=== PATIENT | male | born 1960 | race Caucasian/White ===

== ENCOUNTER 2021-08-18 06:31 | Emergency (ER) | payer OTHER ==
[2021-08-18] MEDS ORDERED: PANTOPRAZOLE 40 MG/10 ML VIAL IVP STA (06:54)
[2021-08-18 07:28] LABS: Basophils # (A) 0.1 k/uL (0-0.2); Basophils % (A) 0 %; Eosinophils # (A) 0.1 k/uL (0-0.7); Eosinophils % (A) 0 %; HCT 39.9 % (39.0-53.0); HGB 13.2 gm/dL (13.0-17.5); Lymphocytes # (A) 2.5 k/uL (1.0-4.8); Lymphocytes % (A) 16 %; MCHC 33.1 g/dL (31.0-37.0); MCV 93.5 fL (80.0-100.0); Mean Platelet Volume 7.9; Monocytes # (A) 0.5 k/uL (0-1.0); Monocytes % (A) 3 %; Neutrophils # (A) 12.4 k/uL (1.3-7.7); Neutrophils % (A) 79 %; Platelet Count 275 k/uL (150-450); RBC 4.27 m/uL (4.30-5.90); RDW 13.7 % (11.5-15.5); WBC 15.6 k/uL (3.8-10.6)
[2021-08-18 07:47] LABS: ALT 15 U/L (4-49); AST 21 U/L (17-59); African American GFR (CKD) >90 (>60 ml/min/1.73 sqM); Albumin 3.9 g/dL (3.5-5.0); Alkaline Phosphatase 73 U/L (38-126); Anion Gap 8 mmol/L; Blood Urea Nitrogen 37 mg/dL (9-20); Calcium 8.8 mg/dL (8.4-10.2); Carbon Dioxide 23 mmol/L (22-30); Chloride 107 mmol/L (98-107); Glucose 197 mg/dL (74-99); Non-African American GFR(CKD) >90 (>60 ml/min/1.73 sqM); Sodium 138 mmol/L (137-145); Total Bilirubin 0.9 mg/dL (0.2-1.3); Total Protein 6.8 g/dL (6.3-8.2)
[2021-08-18 07:54] LABS: Partial Thromboplastin Time 31.4 sec (22.0-30.0); Prothrombin Time 10.6 sec (9.0-12.0)
[2021-08-18] MEDS ORDERED: ONDANSETRON 4 MG/2 ML VIAL IVP STA (08:05)
--- NOTE | 2021-08-18 08:45 | ED ---
GI Bleed HPI - General Chief complaint: GI Bleed Stated complaint: GI Bleed Time Seen by Provider: 08/18/21 06:54 Source: patient, family, EMS, RN notes reviewed, old records reviewed Mode of arrival: EMS Limitations: no limitations - History of Present Illness Initial comments: Patient is a 60-year-old male with history of hemophilia a, presenting to the emergency department via EMS with complaints of a GI bleed. Patient states yesterday and over the weekend he was doing a lot of work and has been feeling fatigued. He woke up around 4 AM, felt nauseous and had an episode of bloody emesis, described as bright red, small clots present. He states he felt a little improved, went to lay back down and then woke up again and had an episode of bloody diarrhea, dark in nature, clots present, so he called EMS. Currently he feels a little fatigued but no nausea or vomiting, denies any abdominal pain. He states he gives himself factor VIII injections every 48 hours, last dose was last night. Never had a GI bleed in the past. Denies any lightheadedness or dizziness, no headaches or blurry vision. Denies chest pain or shortness of breath. 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 Before early this morning, he has felt his normal self, no changes in medications. Patient has no further complaints at this time. - Related Data Home Medications Medication Instructions Recorded Confirmed HYDROcodone/APAP 7.5-325MG [[place] 0.5 tab PO DAILY PRN 08/18/21 08/18/21 7.5-325] Xyntha Solofuse 1,800 - 2,000 unit IV Q48H 08/18/21 08/18/21 Allergies Allergy/AdvReac Type Severity Reaction Status Date / Time No Known Allergies Allergy Verified 08/18/21 07:53 Review of Systems ROS Statement: Those systems with pertinent positive or pertinent negative responses have been documented in the HPI. ROS Other: All systems not noted in ROS Statement are negative. Past Medical History Additional Past Medical History / Comment(s): Hemophila A, Arthritis Additional Past Surgical History / Comment(s): TBI Smoking Status: Never smoker Past Alcohol Use History: Occasional Past Drug Use History: Marijuana General Exam - General Exam Comments Initial Comments: GENERAL: Patient is well-developed and well-nourished. Patient is nontoxic and in no acute distress, looks fatigued. HEAD: Atraumatic, normocephalic. EYES: Pupils equal round and reactive to light, extraocular movements intact, sclera anicteric, conjunctiva are normal. Eyelids were unremarkable. ENT: Nares patent, oropharynx clear without exudates. Moist mucous membranes. NECK: Normal range of motion, supple without lymphadenopathy or JVD. LUNGS: Unlabored respirations. Breath sounds clear to auscultation bilaterally and equal. No wheezes rales or rhonchi. HEART: Regular rate and rhythm without murmurs, rubs or gallops. ABDOMEN: Soft, nontender, normoactive bowel sounds. No guarding, no rebound. No masses appreciated. Rectal: No external hemorrhoids, stool is dark, heme occult positive. MUSCULOSKELETAL: Normal extremities with adequate strength and normal range of motion, no pitting or edema. No clubbing or cyanosis. NEUROLOGICAL: Patient is alert and oriented x 3. Symmetrical smile. Normal speech, normal gait. PSYCH: Normal mood, normal affect. SKIN: Warm, Dry, normal turgor, no rashes or lesions noted. Limitations: no limitations Course Vital Signs 08/18/21 08/18/21 08/18/21 06:33 07:26 08:13 Temperature 98.1 F 97.8 F Pulse Rate 86 91 79 Respiratory 18 18 22 Rate Blood Pressure 115/86 151/95 121/70 O2 Sat by Pulse 97 97 99 Oximetry 08/18/21 08/18/21 08/18/21 10:00 11:00 12:29 Temperature 98.5 F Pulse Rate 88 87 90 Respiratory 18 18 18 Rate Blood Pressure 138/89 136/90 142/93 O2 Sat by Pulse 97 96 98 Oximetry - Reevaluation(s) Reevaluation #1: 08/18/21 10:38 Patient reevaluated, vital signs remained stable. His nausea has improved. No more active vomiting. Patient did receive a dose of factor VIII. Awaiting bed at [facility] currently. Reevaluation #2: 08/18/21 14:33 Patient was reevaluated, vital signs remained stable, no further episodes of vomiting or nausea. Patient resting comfortably. Still awaiting bed assignment at [facility]. Medical Decision Making - Medical Decision Making Patient is a 60-year-old male, history of hemophilia A, presenting with episode of bloody emesis as well as an episode of dark black stool early this morning around 5 AM. Last dose of factor VIII was last night. 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 Hemoglobin is stable currently at 13.2. 7:33AM I spoke to [facility] who does accept transfer, they would like to direct admit him per Dr. Min, patient will wait here for a room assignment. 8:00 AM I spoke with pharmacy and ordered a dose of factor VIII. Patient had another episode of bloody emesis here in the ER, gave him a dose of Zofran. Vital signs remained stable. 2:30 PM still awaiting bed assignment at [facility]. Patient's care will be transferred to team. - Lab Data Result diagrams: 08/18/21 07:06 08/18/21 07:06 Lab Results 08/18/21 08/18/21 08/18/21 Range/Units 07:00 07:05 07:06 WBC 15.6 H (3.8-10.6) k/uL RBC 4.27 L (4.30-5.90) m/uL Hgb 13.2 (13.0-17.5) gm/dL Hct 39.9 (39.0-53.0) % MCV 93.5 (80.0-100.0) fL MCH 31.0 (25.0-35.0) pg MCHC 33.1 (31.0-37.0) g/dL RDW 13.7 (11.5-15.5) % Plt Count 275 (150-450) k/uL MPV 7.9 Neutrophils % 79 % Lymphocytes % 16 % Monocytes % 3 % Eosinophils % 0 % Basophils % 0 % Neutrophils # 12.4 H (1.3-7.7) k/uL Lymphocytes # 2.5 (1.0-4.8) k/uL Monocytes # 0.5 (0-1.0) k/uL Eosinophils # 0.1 (0-0.7) k/uL Basophils # 0.1 (0-0.2) k/uL PT (9.0-12.0) sec INR (<1.2) APTT (22.0-30.0) sec Sodium (137-145) mmol/L Potassium (3.5-5.1) mmol/L Chloride (98-107) mmol/L Carbon Dioxide (22-30) mmol/L Anion Gap mmol/L BUN (9-20) mg/dL Creatinine (0.66-1.25) mg/dL Est GFR (CKD-EPI)AfAm (>60 ml/min/1.73 sqM) Est GFR (CKD-EPI)NonAf (>60 ml/min/1.73 sqM) Glucose (74-99) mg/dL Plasma Lactic Acid Joselito (0.7-2.0) mmol/L Calcium (8.4-10.2) mg/dL Total Bilirubin (0.2-1.3) mg/dL AST (17-59) U/L ALT (4-49) U/L Alkaline Phosphatase (38-126) U/L Troponin I (0.000-0.034) ng/mL Total Protein (6.3-8.2) g/dL Albumin (3.5-5.0) g/dL Stool Occult Blood (Negative) Coronavirus (PCR) (Not Detectd) Blood Type O Positive Blood Type Confirm O Positive Blood Type Recheck No Previous Record Bld Type Recheck Status CABO Indicated Antibody Screen NEGATIVE Spec Expiration Date 08/21/2021 - 230508/18/21 08/18/21 08/18/21 Range/Units 07:06 07:06 07:06 WBC (3.8-10.6) k/uL RBC (4.30-5.90) m/uL Hgb (13.0-17.5) gm/dL Hct (39.0-53.0) % MCV (80.0-100.0) fL MCH (25.0-35.0) pg MCHC (31.0-37.0) g/dL RDW (11.5-15.5) % Plt Count (150-450) k/uL MPV Neutrophils % % Lymphocytes % % Monocytes % % Eosinophils % % Basophils % % Neutrophils # (1.3-7.7) k/uL Lymphocytes # (1.0-4.8) k/uL Monocytes # (0-1.0) k/uL Eosinophils # (0-0.7) k/uL Basophils # (0-0.2) k/uL PT 10.6 (9.0-12.0) sec INR 1.0 (<1.2) APTT 31.4 H (22.0-30.0) sec Sodium 138 (137-145) mmol/L Potassium 4.0 (3.5-5.1) mmol/L Chloride 107 (98-107) mmol/L Carbon Dioxide 23 (22-30) mmol/L Anion Gap 8 mmol/L BUN 37 H (9-20) mg/dL Creatinine 0.84 (0.66-1.25) mg/dL Est GFR (CKD-EPI)AfAm >90 (>60 ml/min/1.73 sqM) Est GFR (CKD-EPI)NonAf >90 (>60 ml/min/1.73 sqM) Glucose 197 H (74-99) mg/dL Plasma Lactic Acid Joselito 1.5 (0.7-2.0) mmol/L Calcium 8.8 (8.4-10.2) mg/dL Total Bilirubin 0.9 (0.2-1.3) mg/dL AST 21 (17-59) U/L ALT 15 (4-49) U/L Alkaline Phosphatase 73 (38-126) U/L Troponin I (0.000-0.034) ng/mL Total Protein 6.8 (6.3-8.2) g/dL Albumin 3.9 (3.5-5.0) g/dL Stool Occult Blood (Negative) Coronavirus (PCR) (Not Detectd) Blood Type Blood Type Confirm Blood Type Recheck Bld Type Recheck Status Antibody Screen Spec Expiration Date 08/18/21 08/18/21 08/18/21 Range/Units 07:06 07:06 08:36 WBC (3.8-10.6) k/uL RBC (4.30-5.90) m/uL Hgb (13.0-17.5) gm/dL Hct (39.0-53.0) % MCV (80.0-100.0) fL MCH (25.0-35.0) pg MCHC (31.0-37.0) g/dL RDW (11.5-15.5) % Plt Count (150-450) k/uL MPV Neutrophils % % Lymphocytes % % Monocytes % % Eosinophils % % Basophils % % Neutrophils # (1.3-7.7) k/uL Lymphocytes # (1.0-4.8) k/uL Monocytes # (0-1.0) k/uL Eosinophils # (0-0.7) k/uL Basophils # (0-0.2) k/uL PT (9.0-12.0) sec INR (<1.2) APTT (22.0-30.0) sec Sodium (137-145) mmol/L Potassium (3.5-5.1) mmol/L Chloride (98-107) mmol/L Carbon Dioxide (22-30) mmol/L Anion Gap mmol/L BUN (9-20) mg/dL Creatinine (0.66-1.25) mg/dL Est GFR (CKD-EPI)AfAm (>60 ml/min/1.73 sqM) Est GFR (CKD-EPI)NonAf (>60 ml/min/1.73 sqM) Glucose (74-99) mg/dL Plasma Lactic Acid Joselito (0.7-2.0) mmol/L Calcium (8.4-10.2) mg/dL Total Bilirubin (0.2-1.3) mg/dL AST (17-59) U/L ALT (4-49) U/L Alkaline Phosphatase (38-126) U/L Troponin I 0.033 (0.000-0.034) ng/mL Total Protein (6.3-8.2) g/dL Albumin (3.5-5.0) g/dL Stool Occult Blood Positive (Negative) Coronavirus (PCR) Not Detected (Not Detectd) Blood Type Blood Type Confirm Blood Type Recheck Bld Type Recheck Status Antibody Screen Spec Expiration Date Disposition Clinical Impression: GI bleed, Hemophilia A Disposition: OTHER INSTITUTION NOT DEFINED Condition: Stable Referrals: Shaka Gerardo MD [Primary Care Provider] - 1-2 days - Out of Hospital Transfer - Req. Specs Out of Hospital Transfer - Requested Specifics: Other Emergency Center ([facility])
[2021-08-18] MEDS ORDERED: ANTIHEMOPHILIC FACTOR IVP ONE (09:00)
[2021-08-18] MEDS ORDERED: SODIUM CHLORIDE 0.9% 1,000 ML IV STA (10:47)
[2021-08-18 18:17] VITALS: RESP 18; TEMP 99
[2021-08-18 19:34] VITALS: BP 137/68; PULSE 93
== END 2021-08-18 19:43 | disposition other institution (70) ==
LOC: EC 06:31
DX: K92.2 Gastrointestinal hemorrhage, unspecified (principal); D66 Hereditary factor VIII deficiency; Z20.822 Contact with and (suspected) exposure to COVID-19
CPT/HCPCS: 36415; 86900; 86901; 80053; 83605; 84484; 85025; 85610; 85730; 86850; 82272; 87635; 99285; 96374; 96375; 96361; J2405; C9113; J7192